=== PATIENT | female | born 2005 | race Caucasian/White ===

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

== ENCOUNTER 2024-05-06 13:17 | Emergency (ER) | payer SELFPAY | END 2024-05-06 15:10 | disposition home or self-care (01) | LOC: CSHERS 13:17 | DX: S20.212A Contusion of left front wall of thorax, initial encounter (principal); F17.290 Nicotine dependence, other tobacco product, uncomplicated; W20.8XXA Other cause of strike by thrown, projected or falling object, initial encounter | CPT/HCPCS: 99283 ==

== ENCOUNTER 2024-11-15 19:43 | Day surgery (SDC) | payer OTHER, SELFPAY ==
[2024-11-15 19:55] VITALS: BMI 32.0
[2024-11-15] MEDS ORDERED: hydrALAZINE 20 MG/ML VIAL SLOW IVP PRN (20:21)
[2024-11-15 20:41] LABS: Glucose, Urine (Dipstick) Normal (Negative); Leukocyte Negative (Negative); Protein, Urine (Dipstick) Negative (Neg-Trace); Specific Gravity, Urine 1.015 (1.005-1.030)
[2024-11-15 21:03] LABS: Bacteria/HPF Rare-Few HPF (None Seen); CAUTI Indications for Culture Dysuria,urgency,freq; RBC/HPF None Seen HPF (0-3); WBC/HPF None Seen HPF (0-3)
[2024-11-15 21:04] LABS: Urine Culture Reflex No No
== END 2024-11-15 21:40 | disposition home or self-care (01) ==
LOC: CSHLD/OP 19:43
PROVIDERS: ATTEND Family Medicine
DX: O99.891 Other specified diseases and conditions complicating pregnancy (principal); R10.2 Pelvic and perineal pain; R10.32 Left lower quadrant pain; R10.31 Right lower quadrant pain; Z3A.21 21 weeks gestation of pregnancy
CPT/HCPCS: 81001; 99282

== ENCOUNTER 2024-11-25 12:54 | Outpatient (CLI) | payer OTHER | END 2024-11-25 12:55 | disposition home or self-care (01) | LOC: CSHULT 12:54 | PROVIDERS: ATTEND Family Medicine | DX: O09.892 Supervision of other high risk pregnancies, second trimester (principal); Z3A.22 22 weeks gestation of pregnancy | CPT/HCPCS: 76805 ==

== ENCOUNTER 2024-12-24 06:55 | Day surgery (SDC) | payer OTHER ==
[2024-12-24 07:29] LABS: #Basophils Less than 0.03 10x3/uL (0.0-0.2); #Eosinophils 0.08 10x3/uL (0.0-0.5); #Monocytes 0.57 10x3/uL (0.0-1.1); #Neutrophils 4.33 10x3/uL (1.5-8.4); %Basophils 0.3 % (0.0-2.0); %Eosinophils 1.2 % (0.0-6.0); %Lymphocytes 23.2 % (18.0-47.0); %Monocytes 8.7 % (0.0-10.0); %Neutrophils 66.3 % (40.0-75.0); Hematocrit 33.0 % (34.9-44.5); Hemoglobin 10.6 g/dL (12.0-15.5); Mean Corpuscular Hemoglobin 27.0 pg (27.0-33.0); Mean Corpuscular Volume 84.0 fL (81.6-98.3); Platelet Count 205 10x3/uL (150-450); Red Blood Cell (RBC) Count 3.93 10x6/uL (3.90-5.03); White Blood Cell (WBC) Count 6.54 10x3/uL (3.5-10.5)
[2024-12-24 07:39] VITALS: BMI 32.9
[2024-12-24] MEDS ORDERED: hydrALAZINE 20 MG/ML VIAL SLOW IVP PRN (07:52)
[2024-12-24 07:59] LABS: ALT (SGPT) 8 U/L (Less than 34); AST (SGOT) 14 U/L (11-34); Albumin 3.0 g/dL (3.1-4.5); Alkaline Phosphatase 77 U/L (40-100); Anion Gap 12 mmol/L (10-20); BUN (Urea Nitrogen) 9 mg/dL (7.0-18.7); Bilirubin, Total 0.2 mg/dL (0.3-1.2); Calc. Creatinine Clearance 207 mL/min (70-130); Calcium 8.5 mg/dL (7.8-10.44); Carbon Dioxide 20 mmol/L (22-29); Chloride 108 mmol/L (98-107); Globulin 3.8 g/dL (2.4-3.5); Glucose 98 mg/dL (70-105); Potassium 3.7 mmol/L (3.5-5.1); Sodium 136 mmol/L (136-145)
== END 2024-12-24 10:54 | disposition home or self-care (01) ==
LOC: CSHERS 06:55 → CSHLD/OP 07:19
PROVIDERS: ATTEND Family Medicine
DX: Z04.1 Encounter for examination and observation following transport accident (principal); Z3A.26 26 weeks gestation of pregnancy
CPT/HCPCS: 76815; 80053; 85025; 99283; 99285

== ENCOUNTER 2025-03-12 12:54 | Inpatient (IN) | payer OTHER ==
[2025-03-12] MEDS ORDERED: Carboprost 250 MCG/ML AMP IM PRN (14:13)
[2025-03-12] MEDS ORDERED: Diphenoxylate HCl/Atropine Tablet PO PRN (14:13)
[2025-03-12] MEDS ORDERED: Tranexamic Acid 1,000 MG/10 ML VIAL IVP PRN (14:13)
[2025-03-12] MEDS ORDERED: Methylergonovine 0.2 MG/ML VIAL IM PRN (14:13)
[2025-03-12] MEDS ORDERED: HYDROcodone/Acetaminophen 5/325 mg Tablet PO PRN ×2 (14:13→19:25)
[2025-03-12] MEDS ORDERED: Lidocaine 1% (PF) 30 ML VIAL SC PRN (14:13)
[2025-03-12] MEDS ORDERED: Ondansetron PF 4 MG/2 ML Vial IVP PRN ×3 (14:13→19:25)
[2025-03-12] MEDS ORDERED: hydrALAZINE 20 MG/ML VIAL SLOW IVP PRN ×2 (14:13→19:25)
[2025-03-12] MEDS ORDERED: Ibuprofen 800 MG TAB PO PRN (14:13)
[2025-03-12] MEDS ORDERED: Acetaminophen 500 MG TAB PO PRN (14:13)
[2025-03-12] MEDS ORDERED: Oxytocin 30 units/NS 500 ML 500 ML IV SCH ×2 (14:15)
[2025-03-12 14:43] VITALS: BMI 34.5
[2025-03-12] MEDS ORDERED: Communication Order-Pharmacy FS SCH (14:45)
[2025-03-12] MEDS ORDERED: Acetaminophen 325 MG TAB PO PRN (14:45)
[2025-03-12] MEDS ORDERED: diphenhydrAMINE 50 MG/ML VIAL IVP PRN (14:45)
[2025-03-12 14:48] LABS: Hematocrit 30.9 % (34.9-44.5); Hemoglobin 9.9 g/dL (12.0-15.5); Mean Corpuscular Hemoglobin 24.2 pg (27.0-33.0); Mean Corpuscular Volume 75.6 fL (81.6-98.3); Platelet Count 237 10x3/uL (150-450); Red Blood Cell (RBC) Count 4.09 10x6/uL (3.90-5.03); White Blood Cell (WBC) Count 10.60 10x3/uL (3.5-10.5)
[2025-03-12] MEDS: fentaNYL 2 mcg/Ropivacaine 0.2% Epidural 100 ML CADD EPIDURAL SCH (15:17)
[2025-03-12 15:27] LABS: Syphilis Antibody Index 0.04 S/CO (<1.00 Non-Reactive)
[2025-03-12 15:28] LABS: Hep B Surf Ag - L&D Non-Reactive S/CO (NonReactive)
[2025-03-12] MEDS ORDERED: Bisacodyl 10 MG SUPP PR PRN (19:25)
[2025-03-12] MEDS ORDERED: Lanolin Ointment 7 GM TUBE TOP PRN (19:25)
[2025-03-12] MEDS ORDERED: Milk Of Magnesia 30 ML UDCUP PO PRN (19:25)
[2025-03-12] MEDS ORDERED: diphenhydrAMINE 25 MG CAP PO PRN (19:25)
[2025-03-12] MEDS: fentaNYL/Ropivacaine Epidural 100 ML ONE (19:57)
[2025-03-12] MEDS: Ibuprofen 800 MG TAB PO SCH (20:07)
[2025-03-12] MEDS: Ferrous Sulfate 325 MG TAB PO SCH (20:07)
[2025-03-12] MEDS: Acetaminophen 500 MG TAB PO PRN (23:59)
[2025-03-13] MEDS: Ferrous Sulfate 325 MG TAB PO SCH (10:10)
[2025-03-13] MEDS ORDERED: Bupivacaine/Epinephrine 0.25% 30 ML VIAL ONE (20:07)
[2025-03-14 08:40] VITALS: BP 101/58; TEMP 98
== END 2025-03-14 15:50 | disposition home or self-care (01) | DRG 807 ==
LOC: CSHLD/OP 12:54 → CSHLD 14:22 → CSHPP 19:35
PROVIDERS: ADMIT Family Medicine; ATTEND Family Medicine
PROC: 10E0XZZ Delivery of Products of Conception, External Approach (ICD-10-PCS; principal; 2025-03-12)
PROC: 10907ZC Drainage of Amniotic Fluid, Therapeutic from Products of Conception, Via Natural or Artificial Opening (ICD-10-PCS; 2025-03-12)
DX: O80 Encounter for full-term uncomplicated delivery (principal); Z37.0 Single live birth; Z3A.37 37 weeks gestation of pregnancy
CPT/HCPCS: 85027; 86780; 86850; 86900; 86901; 87340